=== PATIENT | female | born 1975 | race Caucasian/White ===

== ENCOUNTER 2019-05-10 17:11 | Emergency (ER) | payer MEDICAID ==
[2019-05-10 17:25] VITALS: BP 123/68
--- NOTE | 2019-05-10 18:00 | EDM.PDOC ---
ED HPI GENERAL MEDICAL PROBLEM - General Chief Complaint: ENT Problem Stated Complaint: TOOTH PAIN Time Seen by Provider: 05/10/19 17:25 Source of Information: Reports: Patient History Limitations: Reports: No Limitations - History of Present Illness INITIAL COMMENTS - FREE TEXT/NARRATIVE: 43-year-old female presents for evaluation and treatment of dental pain. Patient reports she's been experiencing pain to the right upper molar for the last week. She reports that she lost a filling to the side and has been experiencing pain to the right upper molar into her right sinuses into her right ear. She reports associated bad taste in mouth and states she's been feeling nauseous and had a subjective fever. She states that she is a decreased appetite. She has been taking Aleve at home, last dose was this afternoon. Additionally, she has been using Orajel. States that she has not seen a dentist in at least 2-1/2 years. She does not have an appointment at this time. No primary care provider. Bilateral Tooth/Teeth Pain Score (Numeric/FACES): 10 - Related Data Allergies Allergy/AdvReac Type Severity Reaction Status Date / Time gabapentin [From Neurontin] Allergy Hives Verified 10/22/16 08:03 ketorolac tromethamine Allergy Hives Verified 10/22/16 08:03 [From Toradol] Penicillins Allergy Hives Verified 10/22/16 08:03 sulfamethoxazole Allergy Cannot Verified 10/22/16 08:03 [From Bactrim] Remember trimethoprim [From Bactrim] Allergy Cannot Verified 10/22/16 08:03 Remember chlorpromazine HCl AdvReac Vomiting Verified 10/22/16 08:03 [From Thorazine] codeine AdvReac Hypertensio Verified 10/22/16 08:03 n hydroxyzine HCl AdvReac Vomiting Verified 10/22/16 08:03 [From Vistaril] hydroxyzine pamoate AdvReac Vomiting Verified 10/22/16 08:03 [From Vistaril] naproxen sodium [From Aleve] AdvReac Tachycardia Verified 10/22/16 08:03 flu vaccine Allergy Hives Uncoded 08/06/16 08:37 Home Meds: Home Meds Clindamycin HCl 300 mg PO Q6H #40 capsule 05/10/19 [Rx] Past Medical History Other Gastrointestinal History: LAP band Genitourinary History: Reports: Renal Calculus Other Genitourinary History: Lithotripsy x 3 CLINICAL REHABILITATION LIAISON History: Reports: Other (See Below) Other CLINICAL REHABILITATION LIAISON History: ovarian cysts Musculoskeletal History: Reports: Back Pain, Chronic Other Musculoskeletal History: cervical 5 fused Neurological History: Reports: Concussion, Head Trauma, Migraines Psychiatric History: Reports: ADD, Anxiety, Depression, Panic Attack Hematologic History: Reports: Anemia - Infectious Disease History Infectious Disease History: Reports: Chicken Pox, MRSA Other Infectious Disease History: Hx of MRSA. Tests negative since. - Past Surgical History HEENT Surgical History: Reports: Oral Surgery, Tonsillectomy GI Surgical History: Reports: Bariatric Procedure, Cholecystectomy Musculoskeletal Surgical History: Reports: Arthroscopic Knee Social & Family History - Family History Cardiac: Reports: Hypertension Endocrine/Metabolic: Reports: Diabetes, type II Oncologic: Reports: Skin - Tobacco Use Smoking Status *Q: Current Every Day Smoker Years of Tobacco use: 27 Packs/Tins Daily: 1 - Caffeine Use Caffeine Use: Reports: Coffee Other Caffeine Use: few 2-3 sodas daily - Recreational Drug Use Recreational Drug Use: No - Living Situation & Occupation Living situation: Reports: , with Family Occupation: Employed ED ROS ENT - Review of Systems Review Of Systems: See Below Constitutional: Reports: Fever (subjective), Decreased Appetite HEENT: Reports: Dental Pain (right upper molar), Ear Pain (right), Sinus Problem (right maxillary sinuses), Other (reprots a bad taste in her mouth) GI/Abdominal: Reports: Nausea. Denies: Vomiting ED EXAM, ENT - Physical Exam Exam: See Below Exam Limited By: No Limitations General Appearance: Alert, WD/WN, No Apparent Distress Ears: Normal External Exam, Normal Canal, Hearing Grossly Normal, Normal TMs. No: TM Erythema, TM Perforation Nose: Normal Inspection Mouth/Throat: Normal Inspection, Normal Lips, Normal Oropharynx, Dental Pain, Dental Tenderness, Dental Trauma (#4 deep dental jonathan without filling), Other (multiple mising teeth, gums are pink wiht some regression, multile carries present, overall poor dentition). No: Dental Abcess (no obvious abscess at this time), Gum Swelling Head: Sinus Tenderness (right maxillary ) Neck: Normal Inspection. No: Lymphadenopathy (L), Lymphadenopathy (R) Respiratory/Chest: No Respiratory Distress, Lungs Clear, Normal Breath Sounds Cardiovascular: Normal Peripheral Pulses, Regular Rate, Rhythm, No Murmur Neurological: Alert, Oriented, Normal Cognition Psychiatric: Normal Affect, Normal Mood Skin: Warm, Dry, Normal Color Course - Vital Signs Last Recorded V/S: Last Vital Signs Temp 98.7 F 05/10/19 17:23 Pulse 93 05/10/19 17:23 Resp 20 05/10/19 17:23 BP 123/68 05/10/19 17:23 Pulse Ox 100 05/10/19 17:23 - Re-Assessments/Exams Free Text/Narrative Re-Assessment/Exam: 05/10/19 18:00 No obvious dental abscess appreciated. Patient is insistent that she has a dental infection she reports a bad taste in her mouth and other associated symptoms. I do not appreciate any facial swelling. I will place her on clindamycin. She was searched any drug registry and has had multiple prescriptions over the last 3 years. I do not feel comfortable prescribing her narcotic and will give further recommendations to control the pain. Discharge instructions as documented. Departure - Departure Time of Disposition: 18:03 Disposition: Home, Self-Care 01 Condition: Fair Clinical Impression: Dental caries extending into dentin, Dental caries - Discharge Information *PRESCRIPTION DRUG MONITORING PROGRAM REVIEWED*: No *COPY OF PRESCRIPTION DRUG MONITORING REPORT IN PATIENT LAST: No Prescriptions: Clindamycin HCl 300 mg PO Q6H #40 capsule Instructions: Diet and Dental Disease Referrals: PCP,None [Primary Care Provider] - Forms: ED Department Discharge Additional Instructions: Recommend purchasing some dental wax, this is available OTC. Apply to the area where filling was. clindamycin 1 tab PO q6hrs x 10 days. take with food. recommend yogurt or a probiotic for additional pain relief. Recommend taking [id number] Tylenol for pain. He may take up to 4 g Tylenol in 1 day. Recommend [id number] ibuprofen as needed for additional pain relief. Unfortunately, given your allergies we are unable to prescribe any additional pain medication for your tooth. Continue take Oragel or clove oil for additional pain relief. Follow-up with a dentist as soon as you able to. List of dentists has been provided for you. Unfortunately, ER does not manage chronic pain and should you need further pain management for your tooth recommend following up with a dentist or primary care provider. Please return to the ER if your symptoms change or worsen.
== END 2019-05-10 18:20 | disposition home or self-care (01) ==
LOC: JD.ED 17:11
DX: K02.9 Dental caries, unspecified (principal); F17.210 Nicotine dependence, cigarettes, uncomplicated; Z88.5 Allergy status to narcotic agent; Z88.7 Allergy status to serum and vaccine; Z88.8 Allergy status to other drugs, medicaments and biological substances; Z88.1 Allergy status to other antibiotic agents; Z88.2 Allergy status to sulfonamides
CPT/HCPCS: 99282; 99283

== ENCOUNTER 2020-01-11 16:51 | Emergency (ER) | payer SELFPAY ==
[2020-01-11 17:08] VITALS: BP 112/77; PULSE 106
[2020-01-11] MEDS ORDERED: Sodium Chloride 0.9% 10 ML Syringe FLUSH PRN (18:14)
[2020-01-11] MEDS ORDERED: Sodium Chloride 0.9% 1,000 ML IV SCH (18:15)
[2020-01-11] MEDS ORDERED: Ondansetron 4 MG/2 ML SDV IVPUSH ONE ×2 (18:15→20:03)
--- NOTE | 2020-01-11 18:16 | EDM.PDOC ---
ED HPI GENERAL MEDICAL PROBLEM - General Chief Complaint: Gastrointestinal Problem Stated Complaint: VOMITING/STOMACH PAIN/WEAK/FEVER Time Seen by Provider: 01/11/20 17:48 Source of Information: Reports: Patient History Limitations: Reports: No Limitations - History of Present Illness INITIAL COMMENTS - FREE TEXT/NARRATIVE: Patient is a 44-year-old female who presents to the ER with complaints of vomiting, abdominal cramping and diarrhea that started around 330 this morning. She also complains of subjective fever and chills. States that she felt well when she went to bed last night but awoke with the symptoms. 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 She has no chronic heart lung or GI pathology. She does have a history of recurrent urinary tract infections. Denies any dysuria at this time; however, she has had low back pain for the past couple days. Lower Back Pain Score (Numeric/FACES): 10 - Related Data Allergies Allergy/AdvReac Type Severity Reaction Status Date / Time gabapentin [From Neurontin] Allergy Hives Verified 10/22/16 08:03 ketorolac tromethamine Allergy Hives Verified 10/22/16 08:03 [From Toradol] Penicillins Allergy Hives Verified 10/22/16 08:03 sulfamethoxazole Allergy Cannot Verified 10/22/16 08:03 [From Bactrim] Remember trimethoprim [From Bactrim] Allergy Cannot Verified 10/22/16 08:03 Remember chlorpromazine HCl AdvReac Vomiting Verified 10/22/16 08:03 [From Thorazine] codeine AdvReac Hypertensio Verified 10/22/16 08:03 n hydroxyzine HCl AdvReac Vomiting Verified 10/22/16 08:03 [From Vistaril] hydroxyzine pamoate AdvReac Vomiting Verified 10/22/16 08:03 [From Vistaril] naproxen sodium [From Aleve] AdvReac Tachycardia Verified 10/22/16 08:03 flu vaccine Allergy Hives Uncoded 08/06/16 08:37 Home Meds: Home Meds Ciprofloxacin HCl [Cipro] 500 mg PO Q12H #14 tablet 01/11/20 [Rx] Past Medical History Other Gastrointestinal History: LAP band Genitourinary History: Reports: Renal Calculus Other Genitourinary History: Lithotripsy x 3 [facility] [place] History: Reports: Other (See Below) Other [facility] [place] History: ovarian cysts Musculoskeletal History: Reports: Back Pain, Chronic Other Musculoskeletal History: cervical 5 fused Neurological History: Reports: Concussion, Head Trauma, Migraines Psychiatric History: Reports: ADD, Anxiety, Depression, Panic Attack Hematologic History: Reports: Anemia - Infectious Disease History Infectious Disease History: Reports: Chicken Pox, MRSA Other Infectious Disease History: Hx of MRSA. Tests negative since. - Past Surgical History HEENT Surgical History: Reports: Oral Surgery, Tonsillectomy GI Surgical History: Reports: Bariatric Procedure, Cholecystectomy Musculoskeletal Surgical History: Reports: Arthroscopic Knee Social & Family History - Family History Cardiac: Reports: Hypertension Endocrine/Metabolic: Reports: Diabetes, type II Oncologic: Reports: Skin - Tobacco Use Smoking Status *Q: Current Every Day Smoker Years of Tobacco use: 20 Packs/Tins Daily: 1 - Caffeine Use Caffeine Use: Reports: Coffee Other Caffeine Use: few 2-3 sodas daily - Living Situation & Occupation Living situation: Reports: , with Family Occupation: Employed ED ROS GENERAL - Review of Systems Review Of Systems: Comprehensive ROS is negative, except as noted in HPI. ED EXAM, GI/ABD - Physical Exam Exam: See Below Exam Limited By: No Limitations General Appearance: Alert, WD/WN, Mild Distress Respiratory/Chest: No Respiratory Distress, Lungs Clear, Normal Breath Sounds, No Accessory Muscle Use, Chest Non-Tender Cardiovascular: Normal Peripheral Pulses, Regular Rate, Rhythm, No Edema, No Gallop, No JVD, No Murmur, No Rub GI/Abdominal Exam: Normal Bowel Sounds, Soft, No Organomegaly, No Distention, No Abnormal Bruit, No Mass, Pelvis Stable, Tender (Generalized tenderness throughout) Back Exam: Normal Inspection, Full Range of Motion, CVA Tenderness (L), CVA Tenderness (R) Neurological: Alert, Oriented, CN II-XII Intact, Normal Cognition, Normal Gait, Normal Reflexes, No Motor/Sensory Deficits Psychiatric: Normal Affect, Normal Mood Skin Exam: Warm, Dry, Intact, Normal Color, No Rash Course - Vital Signs Last Recorded V/S: Last Vital Signs Temp 98.6 F 01/11/20 17:05 Pulse 106 H 01/11/20 17:05 Resp 25 H 01/11/20 17:05 BP 112/77 01/11/20 17:05 Pulse Ox 100 01/11/20 17:05 - Orders/Labs/Meds Orders: Active Orders 24 hr Category Date Time Status Peripheral IV Care [RC] . DIRECTED Care 01/11/20 18:14 Active Dextrose 5%-0.9% NaCl with KCl [D5 NS with 20 mEq KCl] Med 01/11/20 20:00 Active 1,000 ml IV ASDIRECTED Sodium Chloride 0.9% [Normal Saline] 1,000 ml Med 01/11/20 18:15 Active IV ASDIRECTED Sodium Chloride 0.9% [Saline Flush] Med 01/11/20 18:14 Active 10 ml FLUSH ASDIRECTED PRN Peripheral IV Insertion Adult [OM.PC] Stat Oth 01/11/20 18:14 Ordered Medication Orders Sodium Chloride (Normal Saline) 1,000 mls @ 999 mls/hr IV ASDIRECTED GERBER Last Admin: 01/11/20 18:56 Dose: 999 mls/hr Potassium Chloride/Dextrose/Sod Cl (D5 Ns With 20 Meq Kcl) 1,000 mls @ 500 mls/ hr IV ASDIRECTED GERBER Last Admin: 01/11/20 20:17 Dose: 500 mls/hr Sodium Chloride (Saline Flush) 10 ml FLUSH ASDIRECTED PRN PRN Reason: Keep Vein Open Last Admin: 01/11/20 18:40 Dose: 10 ml Labs: Laboratory Tests 01/11/20 01/11/20 01/11/20 Range/Units 18:16 18:40 18:40 WBC 8.75 (3.98-10.04) K/mm3 RBC 4.61 (3.98-5.22) M/mm3 Hgb 14.3 (11.2-15.7) gm/dl Hct 44.1 (34.1-44.9) % MCV 95.7 H (79.4-94.8) fl MCH 31.0 (25.6-32.2) pg MCHC 32.4 (32.2-35.5) g/dl RDW Std Deviation 46.0 (36.4-46.3) fL Plt Count 220 (182-369) K/mm3 MPV 11.1 (9.4-12.3) fl Neut % (Auto) 86.6 H (34.0-71.1) % Lymph % (Auto) 6.5 L (19.3-51.7) % Murray % (Auto) 5.6 (4.7-12.5) % Eos % (Auto) 1.1 (0.7-5.8) Baso % (Auto) 0.2 (0.1-1.2) % Neut # (Auto) 7.57 H (1.56-6.13) K/mm3 Lymph # (Auto) 0.57 L (1.18-3.74) K/mm3 Murray # (Auto) 0.49 H (0.24-0.36) K/mm3 Eos # (Auto) 0.10 (0.04-0.36) K/mm3 Baso # (Auto) 0.02 (0.01-0.08) K/mm3 Manual Slide Review Abnormal smear Sodium 141 (136-145) mEq/L Potassium 3.2 L (3.5-5.1) mEq/L Chloride 106 (98-107) mEq/L Carbon Dioxide 20 L (21-32) mEq/L Anion Gap 18.2 H (5-15) BUN 21 H (7-18) mg/dL Creatinine 0.8 (0.55-1.02) mg/dL Est Cr Clr Drug Dosing 77.49 mL/min Estimated GFR (MDRD) > 60 (>60) mL/min BUN/Creatinine Ratio 26.3 H (14-18) Glucose 93 (74-106) mg/dL Lactic Acid (0.4-2.0) mmol/L Calcium 8.9 (8.5-10.1) mg/dL Magnesium 1.5 L (1.8-2.4) mg/dl Total Bilirubin 1.0 (0.2-1.0) mg/dL AST 13 L (15-37) U/L ALT 19 (14-59) U/L Alkaline Phosphatase 57 (46-116) U/L C-Reactive Protein 2.3 H* (<1.0) mg/dL Total Protein 7.1 (6.4-8.2) g/dl Albumin 3.9 (3.4-5.0) g/dl Globulin 3.2 gm/dL Albumin/Globulin Ratio 1.2 (1-2) Urine Color Yellow (Yellow) Urine Appearance Clear (Clear) Urine pH 7.0 (5.0-8.0) Ur Specific Rhodes 1.020 (1.005-1.030) Urine Protein 1+ H (Negative) Urine Glucose (UA) Negative (Negative) Urine Ketones 3+ H (Negative) Urine Occult Blood Trace-lysed H (Negative) Urine Nitrite Positive H (Negative) Urine Bilirubin Negative (Negative) Urine Urobilinogen 0.2 (0.2-1.0) Ur Leukocyte Esterase 1+ H (Negative) Urine RBC 0-5 (0-5) /hpf Urine WBC 30-40 H (0-5) /hpf Ur Squamous Epith Cells 5-10 H (0-5) /hpf Urine Bacteria Moderate H (FEW) /hpf Urine Mucus Moderate H (FEW) /hpf 01/11/20 Range/Units 18:40 WBC (3.98-10.04) K/mm3 RBC (3.98-5.22) M/mm3 Hgb (11.2-15.7) gm/dl Hct (34.1-44.9) % MCV (79.4-94.8) fl MCH (25.6-32.2) pg MCHC (32.2-35.5) g/dl RDW Std Deviation (36.4-46.3) fL Plt Count (182-369) K/mm3 MPV (9.4-12.3) fl Neut % (Auto) (34.0-71.1) % Lymph % (Auto) (19.3-51.7) % Murray % (Auto) (4.7-12.5) % Eos % (Auto) (0.7-5.8) Baso % (Auto) (0.1-1.2) % Neut # (Auto) (1.56-6.13) K/mm3 Lymph # (Auto) (1.18-3.74) K/mm3 Murray # (Auto) (0.24-0.36) K/mm3 Eos # (Auto) (0.04-0.36) K/mm3 Baso # (Auto) (0.01-0.08) K/mm3 Manual Slide Review Sodium (136-145) mEq/L Potassium (3.5-5.1) mEq/L Chloride (98-107) mEq/L Carbon Dioxide (21-32) mEq/L Anion Gap (5-15) BUN (7-18) mg/dL Creatinine (0.55-1.02) mg/dL Est Cr Clr Drug Dosing mL/min Estimated GFR (MDRD) (>60) mL/min BUN/Creatinine Ratio (14-18) Glucose (74-106) mg/dL Lactic Acid 0.8 (0.4-2.0) mmol/L Calcium (8.5-10.1) mg/dL Magnesium (1.8-2.4) mg/dl Total Bilirubin (0.2-1.0) mg/dL AST (15-37) U/L ALT (14-59) U/L Alkaline Phosphatase (46-116) U/L C-Reactive Protein (<1.0) mg/dL Total Protein (6.4-8.2) g/dl Albumin (3.4-5.0) g/dl Globulin gm/dL Albumin/Globulin Ratio (1-2) Urine Color (Yellow) Urine Appearance (Clear) Urine pH (5.0-8.0) Ur Specific Rhodes (1.005-1.030) Urine Protein (Negative) Urine Glucose (UA) (Negative) Urine Ketones (Negative) Urine Occult Blood (Negative) Urine Nitrite (Negative) Urine Bilirubin (Negative) Urine Urobilinogen (0.2-1.0) Ur Leukocyte Esterase (Negative) Urine RBC (0-5) /hpf Urine WBC (0-5) /hpf Ur Squamous Epith Cells (0-5) /hpf Urine Bacteria (FEW) /hpf Urine Mucus (FEW) /hpf Meds: Medications Generic Name Dose Route Start Last Admin Trade Name Freq PRN Reason Stop Dose Admin Sodium Chloride 1,000 mls @ 999 mls/hr 01/11/20 18:15 01/11/20 18:56 Normal Saline IV 999 mls/hr ASDIRECTED GERBER Administration Potassium Chloride/Dextrose/Sod Cl 1,000 mls @ 500 mls/hr 01/11/20 20:00 20:17 D5 Ns With 20 Meq Kcl IV 500 mls/hr ASDIRECTED GERBER Administration Sodium Chloride 10 ml 01/11/20 18:14 01/11/20 18:40 Saline Flush FLUSH 10 ml ASDIRECTED PRN Administration Keep Vein Open Discontinued Medications Generic Name Dose Route Start Last Admin Trade Name Freq PRN Reason Stop Dose Admin Hydromorphone HCl 0.5 mg 01/11/20 19:43 01/11/20 19:57 Dilaudid IVPUSH 01/11/20 19:44 0.5 mg ONETIME ONE Administration Hydromorphone HCl 0.5 mg 01/11/20 21:21 01/11/20 21:40 Dilaudid IVPUSH 01/11/20 21:22 0.5 mg ONETIME ONE Administration Levofloxacin/Dextrose 750 mg/ 150 mls @ 100 mls/hr 01/11/20 20:03 01/11/20 20 :19 Premix IV 01/11/20 21:32 100 mls/hr ONETIME ONE Administration Magnesium Sulfate 2 gm/ Premix 50 mls @ 50 mls/hr 01/11/20 20:07 01/11/20 21: 40 IV 01/11/20 21:06 25 mls/hr ONETIME ONE Administration Metoclopramide HCl 7.5 mg 01/11/20 21:41 01/11/20 22:00 Reglan IVPUSH 01/11/20 21:42 7.5 mg ONETIME ONE Administration Ondansetron HCl 4 mg 01/11/20 18:15 01/11/20 18:54 Zofran IVPUSH 01/11/20 18:16 4 mg ONETIME ONE Administration Ondansetron HCl 4 mg 01/11/20 20:03 01/11/20 20:16 Zofran IVPUSH 01/11/20 20:04 4 mg ONETIME ONE Administration - Re-Assessments/Exams Free Text/Narrative Re-Assessment/Exam: 01/11/20 20:06 Hematology was significant for a potassium decreased at 3.2, CO2 low at 20, anion gap elevated at 18.2, BUN increased at 21 magnesium is low at 1.5, CRP elevated to 2.3. Urinalysis was positive for a urinary tract infection. With patient's complaints of low back pain and CVA tenderness, I will treat with a dose of Levaquin now with the plan to discharge her on Cipro. Patient states she has taken his medications in the past and done well with them. I have ordered D5 LR with 20 of KCl, magnesium, and Zofran. Patient was also having some rib pain for which she was given Dilaudid. 01/11/20 22:41 Patient was complaining of increased nausea. She received Reglan for this which did help her nausea. She has completed her IV fluids with potassium, her magnesium, and her Levaquin. She states that she feels better and is comfortable going home with Zofran at this time. I will prescribe her Cipro for her urinary tract infection with possible pyelonephritis as well as Zofran. The Zofran will be dispensed to her [employer] machine. Discharge instructions as documented. Departure - Departure Time of Disposition: 22:42 Disposition: Home, Self-Care 01 Condition: Fair Clinical Impression: UTI, Urinary tract infectious disease, Gastroenteritis - Discharge Information *PRESCRIPTION DRUG MONITORING PROGRAM REVIEWED*: No *COPY OF PRESCRIPTION DRUG MONITORING REPORT IN PATIENT LAST: No Prescriptions: Ciprofloxacin HCl [Cipro] 500 mg PO Q12H #14 tablet Instructions: Viral Gastroenteritis, Adult, Urinary Tract Infection, Adult, [id number] Referrals: PCP,None [Primary Care Provider] - Forms: ED Department Discharge Additional Instructions: You were seen in the emergency department today for vomiting and diarrhea. Your work-up included blood work and a urinalysis. Your blood work showed that you were dehydrated which was to be expected based on your symptoms. Your magnesium and potassium were also found to be slightly low. You received 2 L of IV fluids, as well as a replacement of potassium in the ER. You also be received medications for pain and nausea. Urinalysis did show infection as well. He received a dose of Levaquin in the ER which is an antibiotic. You have also been prescribed Cipro take this medication as prescribed. You have been sent home with Zofran. You may take this every 6 hours as needed for nausea. Recommend that you maintain a clear liquid diet for the next 24 to 48 hours and then advance as tolerated. If you experience any worsening symptoms, please do not hesitate to return to the emergency department. Sepsis Event Note - Evaluation Sepsis Screening Result: No Definite Risk - Focused Exam Vital Signs: Vital Signs Temp Pulse Resp BP Pulse Ox 01/11/20 17:05 98.6 F 106 H 25 H 112/77 100 Date Exam was Performed: 01/11/20 Time Exam was Performed: 22:41 - My Orders Last 24 Hours: My Active Orders 01/11/20 18:14 Peripheral IV Care [RC] . DIRECTED Sodium Chloride 0.9% [Saline Flush] 10 ml FLUSH ASDIRECTED PRN Peripheral IV Insertion Adult [OM.PC] Stat 01/11/20 18:15 Sodium Chloride 0.9% [Normal Saline] 1,000 ml IV ASDIRECTED 01/11/20 20:00 Dextrose 5%-0.9% NaCl with KCl [D5 NS with 20 mEq KCl] 1,000 ml IV ASDIRECTED - Assessment/Plan Last 24 Hours: My Active Orders 01/11/20 18:14 Peripheral IV Care [RC] . DIRECTED Sodium Chloride 0.9% [Saline Flush] 10 ml FLUSH ASDIRECTED PRN Peripheral IV Insertion Adult [OM.PC] Stat 01/11/20 18:15 Sodium Chloride 0.9% [Normal Saline] 1,000 ml IV ASDIRECTED 01/11/20 20:00 Dextrose 5%-0.9% NaCl with KCl [D5 NS with 20 mEq KCl] 1,000 ml IV ASDIRECTED
[2020-01-11] MEDS ORDERED: HYDROmorphone 0.5 MG/0.5 ML Syringe IVPUSH ONE ×2 (19:43→21:21)
[2020-01-11] MEDS ORDERED: Dextrose 5%-0.9% NaCl with KCl 1,000 ML IV SCH (20:00)
[2020-01-11] MEDS ORDERED: Levofloxacin/Dextrose 5%-Water 750 MG in Premix Bag 1 BAG IV ONE (20:03)
[2020-01-11] MEDS ORDERED: Magnesium Sulfate/Water 2 GM in Premix Bag 1 BAG IV ONE (20:07)
[2020-01-11] MEDS ORDERED: Metoclopramide 10 MG/2 ML SDV IVPUSH ONE (21:41)
== END 2020-01-11 23:05 | disposition home or self-care (01) ==
LOC: JD.ED 16:51
DX: K52.9 Noninfective gastroenteritis and colitis, unspecified (principal); N39.0 Urinary tract infection, site not specified; F17.210 Nicotine dependence, cigarettes, uncomplicated; Z88.8 Allergy status to other drugs, medicaments and biological substances; Z88.0 Allergy status to penicillin; Z88.1 Allergy status to other antibiotic agents; Z88.5 Allergy status to narcotic agent; Z88.7 Allergy status to serum and vaccine
CPT/HCPCS: 36415; 80053; 81001; 83605; 83735; 85025; 86140; 87086; 87088; 87186; 96361; 96365; 96366; 96367; 96368; 96375; 96376; 99284; J1170; J1956; J2405; J2765; J3475; J3480; J7030

== ENCOUNTER 2020-01-17 20:26 | Emergency (ER) | payer SELFPAY ==
[2020-01-17 20:46] VITALS: BP 125/66; PULSE 85
--- NOTE | 2020-01-17 21:29 | EDM.PDOC ---
ED HPI GENERAL MEDICAL PROBLEM - General Chief Complaint: Back Pain or Injury Stated Complaint: BACK PAIN Time Seen by Provider: 01/17/20 21:28 - History of Present Illness INITIAL COMMENTS - FREE TEXT/NARRATIVE: 44-year-old female presents the emergency room with right-sided back pain. This is been going on all day progressively getting worse patient is convinced she has another kidney stone. She has had some nausea no vomiting the pain does not seem to radiate into her groin. Is just stuck in the right middle and upper abdomen and back. This is had a kidney stone in the past this reminds her an awful lot like that. She denies any lifting or twisting maneuvers that may have caused this.. Middle Back Pain Score (Numeric/FACES): 8 - Related Data Allergies Allergy/AdvReac Type Severity Reaction Status Date / Time gabapentin [From Neurontin] Allergy Hives Verified 01/17/20 20:42 ketorolac tromethamine Allergy Hives Verified 01/17/20 20:42 [From Toradol] Penicillins Allergy Hives Verified 01/17/20 20:42 sulfamethoxazole Allergy Cannot Verified 01/17/20 20:42 [From Bactrim] Remember trimethoprim [From Bactrim] Allergy Cannot Verified 01/17/20 20:42 Remember chlorpromazine HCl AdvReac Vomiting Verified 01/17/20 20:42 [From Thorazine] codeine AdvReac Hypertensio Verified 01/17/20 20:42 n hydroxyzine HCl AdvReac Vomiting Verified 01/17/20 20:42 [From Vistaril] hydroxyzine pamoate AdvReac Vomiting Verified 01/17/20 20:42 [From Vistaril] naproxen sodium [From Aleve] AdvReac Tachycardia Verified 01/17/20 20:42 flu vaccine Allergy Hives Uncoded 01/17/20 20:42 Home Meds: Home Meds Ciprofloxacin HCl [Cipro] 500 mg PO Q12H #14 tablet 01/11/20 [Rx] Cyclobenzaprine [Flexeril] 10 mg PO TID #11 tab 01/17/20 [Rx] Past Medical History Cardiovascular History: Reports: None Respiratory History: Reports: None Other Gastrointestinal History: LAP band Genitourinary History: Reports: Renal Calculus Other Genitourinary History: Lithotripsy x 3 AUTHORIZATION REPRESENTATIVE History: Reports: Other (See Below) Other AUTHORIZATION REPRESENTATIVE History: ovarian cysts Musculoskeletal History: Reports: Back Pain, Chronic Other Musculoskeletal History: cervical 5 fused Neurological History: Reports: Concussion, Head Trauma, Migraines Psychiatric History: Reports: ADD, Anxiety, Depression, Panic Attack Endocrine/Metabolic History: Reports: None Hematologic History: Reports: Anemia Immunologic History: Reports: None Oncologic (Cancer) History: Reports: None Dermatologic History: Reports: None - Infectious Disease History Infectious Disease History: Reports: Chicken Pox, MRSA Other Infectious Disease History: Hx of MRSA. Tests negative since. - Past Surgical History HEENT Surgical History: Reports: Oral Surgery, Tonsillectomy GI Surgical History: Reports: Bariatric Procedure, Cholecystectomy Musculoskeletal Surgical History: Reports: Arthroscopic Knee Social & Family History - Family History Cardiac: Reports: Hypertension Endocrine/Metabolic: Reports: Diabetes, type II Oncologic: Reports: Skin - Tobacco Use Smoking Status *Q: Current Every Day Smoker Years of Tobacco use: 25 Packs/Tins Daily: 0.7 - Caffeine Use Caffeine Use: Reports: Coffee, Soda Other Caffeine Use: few 2-3 sodas daily - Recreational Drug Use Recreational Drug Use: No - Living Situation & Occupation Living situation: Reports: , with Family Occupation: Employed ED ROS GENERAL - Review of Systems Review Of Systems: See Below Constitutional: Reports: No Symptoms HEENT: Reports: No Symptoms Respiratory: Reports: No Symptoms Cardiovascular: Reports: No Symptoms GI/Abdominal: Reports: Abdominal Pain. Denies: Constipation, Diarrhea, Nausea, Vomiting : Reports: Flank Pain. Denies: Frequency, Urgency Musculoskeletal: Reports: No Symptoms Skin: Reports: No Symptoms Neurological: Reports: No Symptoms Psychiatric: Reports: No Symptoms Hematologic/Lymphatic: Reports: No Symptoms Immunologic: Reports: No Symptoms ED EXAM,LOWER BACK PAIN/INJURY - Physical Exam Exam: See Below Exam Limited By: No Limitations General Appearance: Alert, No Apparent Distress Head: Atraumatic, Normocephalic Neck: Normal Inspection, Supple, Non-Tender, Full Range of Motion. No: Lymphadenopathy (L), Lymphadenopathy (R) Respiratory/Chest: No Respiratory Distress, Lungs Clear, Normal Breath Sounds Cardiovascular: Regular Rate, Rhythm, No Edema, No Murmur GI/Abdominal: Normal Bowel Sounds, Soft, Tender (Upper quadrant discomfort this is not necessarily worsened with palpation). No: Guarding, Rigid, Rebound Back Exam: Normal Inspection, CVA Tenderness (R) (She refuses me to check the right side for CVA discomfort). No: CVA Tenderness (L) Neurological: Alert, Normal Mood/Affect Skin Exam: Warm, Dry, Intact Course - Vital Signs Last Recorded V/S: Last Vital Signs Temp 36.6 C 01/17/20 20:44 Pulse 85 01/17/20 20:44 Resp 16 01/17/20 20:44 BP 125/66 01/17/20 20:44 Pulse Ox 100 01/17/20 20:44 - Orders/Labs/Meds Orders: Active Orders 24 hr Category Date Time Status Abdomen Pelvis wo Cont [CT] Stat Exams 01/17/20 21:41 Taken Lactated Ringers [Ringers, Lactated] 1,000 ml Med 01/17/20 22:00 Active IV ASDIRECTED Medication Orders Lactated Ringer's (Ringers, Lactated) 1,000 mls @ 150 mls/hr IV ASDIRECTED GERBER Labs: Laboratory Tests 01/17/20 01/17/20 01/17/20 Range/Units 20:45 22:02 22:02 WBC 9.88 (3.98-10.04) K/mm3 RBC 4.03 (3.98-5.22) M/mm3 Hgb 12.6 D (11.2-15.7) gm/dl Hct 37.9 (34.1-44.9) % MCV 94.0 (79.4-94.8) fl MCH 31.3 (25.6-32.2) pg MCHC 33.2 (32.2-35.5) g/dl RDW Std Deviation 45.1 (36.4-46.3) fL Plt Count 294 (182-369) K/mm3 MPV 10.7 (9.4-12.3) fl Neut % (Auto) 67.7 (34.0-71.1) % Lymph % (Auto) 21.4 (19.3-51.7) % [place] % (Auto) 6.9 (4.7-12.5) % Eos % (Auto) 3.4 (0.7-5.8) Baso % (Auto) 0.4 (0.1-1.2) % Neut # (Auto) 6.69 H (1.56-6.13) K/mm3 Lymph # (Auto) 2.11 (1.18-3.74) K/mm3 [place] # (Auto) 0.68 H (0.24-0.36) K/mm3 Eos # (Auto) 0.34 (0.04-0.36) K/mm3 Baso # (Auto) 0.04 (0.01-0.08) K/mm3 Sodium 142 (136-145) mEq/L Potassium 3.6 (3.5-5.1) mEq/L Chloride 107 (98-107) mEq/L Carbon Dioxide 25 (21-32) mEq/L Anion Gap 13.6 (5-15) BUN 13 (7-18) mg/dL Creatinine 0.7 (0.55-1.02) mg/dL Est Cr Clr Drug Dosing 84.84 mL/min Estimated GFR (MDRD) > 60 (>60) mL/min BUN/Creatinine Ratio 18.6 H (14-18) Glucose 97 (74-106) mg/dL Calcium 9.2 (8.5-10.1) mg/dL Total Bilirubin 0.4 (0.2-1.0) mg/dL AST 13 L (15-37) U/L ALT 22 (14-59) U/L Alkaline Phosphatase 55 (46-116) U/L Total Protein 6.3 L (6.4-8.2) g/dl Albumin 3.7 (3.4-5.0) g/dl Globulin 2.6 gm/dL Albumin/Globulin Ratio 1.4 (1-2) Urine Color Light yellow (Yellow) Urine Appearance Clear (Clear) Urine pH 6.5 (5.0-8.0) Ur Specific [place] 1.020 (1.005-1.030) Urine Protein Negative (Negative) Urine Glucose (UA) Negative (Negative) Urine Ketones Negative (Negative) Urine Occult Blood Negative (Negative) Urine Nitrite Negative (Negative) Urine Bilirubin Negative (Negative) Urine Urobilinogen 0.2 (0.2-1.0) Ur Leukocyte Esterase Negative (Negative) Urine RBC Not seen (0-5) /hpf Urine WBC 0-5 (0-5) /hpf Ur Squamous Epith Cells 0-5 (0-5) /hpf Urine Bacteria Rare (FEW) /hpf Urine Mucus Not seen (FEW) /hpf Meds: Medications Generic Name Dose Route Start Last Admin Trade Name Keesha PRN Reason Stop Dose Admin Lactated Ringer's 1,000 mls @ 150 mls/hr 01/17/20 22:00 Ringers, Lactated IV ASDIRECTED GERBER Discontinued Medications Generic Name Dose Route Start Last Admin Trade Name Keesha PRN Reason Stop Dose Admin Hydromorphone HCl 0.5 mg 01/17/20 21:51 01/17/20 22:26 Dilaudid IVPUSH 01/17/20 21:52 Not Given ONETIME ONE Hydromorphone HCl 0.5 mg 01/17/20 22:22 01/17/20 22:24 Dilaudid IM 01/17/20 22:23 0.5 mg ONETIME ONE Administration - Re-Assessments/Exams Free Text/Narrative Re-Assessment/Exam: 01/17/20 23:36 Labs reviewed nothing suggestive of acute process CT does not show any acute intra-abdominal process she has kidney stones in the lower pole of the right kidney but she is not in the process of passing a stone. Repeat examination confirms low back strain as was suspected. Patient has limitation what she can take for oral medications she will be placed on Flexeril 1 p.o. 3 times daily for 2 days and then 1 nightly thereafter. Departure - Departure Time of Disposition: 23:38 Disposition: Home, Self-Care 01 Clinical Impression: Low back strain - Discharge Information Prescriptions: Cyclobenzaprine [Flexeril] 10 mg PO TID #11 tab Referrals: PCP,None [Primary Care Provider] - Forms: ED Department Discharge Additional Instructions: Return to the emergency room with any questions problems or worsening symptoms. Follow-up with your healthcare provider early this next week for recheck. Take the medications as directed. Sepsis Event Note - Evaluation Sepsis Screening Result: No Definite Risk - Focused Exam Vital Signs: Vital Signs Temp Pulse Resp BP Pulse Ox 01/17/20 20:44 36.6 C 85 16 125/66 100 Date Exam was Performed: 01/17/20 Time Exam was Performed: 23:36 - My Orders Last 24 Hours: My Active Orders 01/17/20 21:41 Abdomen Pelvis wo Cont [CT] Stat 01/17/20 22:00 Lactated Ringers [Ringers, Lactated] 1,000 ml IV ASDIRECTED - Assessment/Plan Last 24 Hours: My Active Orders 01/17/20 21:41 Abdomen Pelvis wo Cont [CT] Stat 01/17/20 22:00 Lactated Ringers [Ringers, Lactated] 1,000 ml IV ASDIRECTED
[2020-01-17] MEDS ORDERED: HYDROmorphone 0.5 MG/0.5 ML Syringe IVPUSH ONE (21:51)
[2020-01-17] MEDS ORDERED: Lactated Ringers 1,000 ML IV SCH (22:00)
[2020-01-17] MEDS ORDERED: HYDROmorphone 0.5 MG/0.5 ML Syringe IM ONE (22:22)
[2020-01-17] MEDS ORDERED: Cyclobenzaprine 10 MG Tab PO ONE (23:37)
[2020-01-17] MEDS ORDERED: Ondansetron 4 MG Tab.DIS PO ONE (23:53)
--- NOTE | 2020-01-18 07:41 | CT ---
CT abdomen and pelvis Technique: Multiple axial sections were obtained from above the dome of the diaphragm inferiorly through the pubic symphysis. Intravenous and oral contrast was not utilized. Comparison: Previous CT abdomen and pelvis study of 11/14/16. Findings: Several small calcifications are seen of the left kidney compatible with nonobstructing calculi with largest measuring about 3 mm. Small calcification is noted within the right kidney measuring 1-2 mm. Cortical calcification is seen within the right kidney. Mild scarring is seen within the right kidney. Lap band is present. Prior cholecystectomy is noted. Visualized lung bases show nothing acute. Noncontrast appearance of the liver shows no focal abnormality. Spleen appears within normal limits. Pancreas shows no discrete abnormality. Aorta shows no aneurysm. No retroperitoneal adenopathy or mesenteric abnormalities are seen. Cysts are present within both ovaries. Largest cyst on the right side measuring 3.8 cm. No additional pelvic abnormality is seen. No free fluid or inflammatory change is appreciated. Dystrophic calcifications seen within the soft tissues of both buttocks which are stable from previous exam. Appendix is not seen with definite certainty. Bone window settings were reviewed which show no acute osseous finding. Increased stool noted throughout the colon. Impression: 1. Increased stool within the colon. 2. Cystic change within both ovaries with largest cyst measuring 3.8 cm. These are most likely physiologic. 3. Nonobstructing calculi within both kidneys as well as cortical calcification within the right kidney. Mild scarring within the right kidney. No ureteral dilatation or ureteral stone is seen. 4. Other findings as noted above believed to be nonacute and incidental. Diagnostic code #2 This report was dictated in [place] Standard Time I agree with preliminary report from [facility], finalized on 01/17/20, 11:55 PM Central Time
== END 2020-01-18 00:01 | disposition home or self-care (01) ==
LOC: JD.ED 20:26
DX: S39.012A Strain of muscle, fascia and tendon of lower back, initial encounter (principal); F17.210 Nicotine dependence, cigarettes, uncomplicated; Z88.8 Allergy status to other drugs, medicaments and biological substances; Z88.0 Allergy status to penicillin; Z88.2 Allergy status to sulfonamides; Z88.5 Allergy status to narcotic agent; Z88.1 Allergy status to other antibiotic agents; Z88.7 Allergy status to serum and vaccine; W22.8XXA Striking against or struck by other objects, initial encounter
CPT/HCPCS: 36415; 74176; 80053; 81001; 85025; 96372; 99284; A9270; 99283; J1170

== ENCOUNTER 2022-06-01 18:39 | Emergency (ER) | payer SELFPAY ==
[2022-06-01 19:40] VITALS: BP 134/87; PULSE 103
== END 2022-06-01 20:07 | disposition home or self-care (01) ==
LOC: JD.ED 18:39
DX: S39.012A Strain of muscle, fascia and tendon of lower back, initial encounter (principal); Z88.1 Allergy status to other antibiotic agents; Z88.8 Allergy status to other drugs, medicaments and biological substances; Z88.0 Allergy status to penicillin; Z88.2 Allergy status to sulfonamides; Z88.5 Allergy status to narcotic agent; Z90.49 Acquired absence of other specified parts of digestive tract; X58.XXXA Exposure to other specified factors, initial encounter
CPT/HCPCS: 99283

== ENCOUNTER 2022-06-22 20:38 | Emergency (ER) | payer MEDICAID, OTHER ==
[2022-06-22 20:51] VITALS: BP 120/76; PULSE 100
== END 2022-06-22 21:50 | disposition home or self-care (01) ==
LOC: JD.ED 20:38
DX: M54.42 Lumbago with sciatica, left side (principal); F17.210 Nicotine dependence, cigarettes, uncomplicated; Z88.7 Allergy status to serum and vaccine; Z88.5 Allergy status to narcotic agent; Z88.0 Allergy status to penicillin; Z88.8 Allergy status to other drugs, medicaments and biological substances; Z86.16 Personal history of COVID-19
CPT/HCPCS: 99283